=== PATIENT | male | born 1940 | race Caucasian/White ===

== ENCOUNTER 2021-08-09 19:28 | Emergency (ER) | payer MEDICARE ==
[~2021-08-09 19:28] MED LIST: NORCO 5-325 TA1 EACH PO
[2021-08-09 21:03] LABS: HCT 42.3 % (42.0-52.0); MCH 32.3 pg (25.0-31.0); MCHC 33.1 g/dL (32.0-36.0); MCV 97.7 fL (78.0-100.0); MPV 10.2 fL (6.0-9.5); RBC 4.33 M/uL (4.70-6.00); RDW 12.8 % (11.5-14.0)
[2021-08-09 21:13] LABS: INR 0.96 (0.9-1.2); PROTHROMBIN TIME 12.2 SECONDS (11.8-13.4)
[2021-08-09 21:18] LABS: BUN/CREAT RATIO (CALC) 16.8 RATIO; CREATININE 1.01 mg/dL (0.67-1.17)
[2021-08-09] MEDS ORDERED: CLEOCIN300 MG PO (23:01)
== END 2021-08-10 00:06 | disposition home or self-care (01) ==
LOC: FER 19:28
PROVIDERS: Emergency Medicine
DX: R04.0 Epistaxis (principal); I10 Essential (primary) hypertension; I25.10 Atherosclerotic heart disease of native coronary artery without angina pectoris; Z88.0 Allergy status to penicillin; Z79.82 Long term (current) use of aspirin; Z79.02 Long term (current) use of antithrombotics/antiplatelets
CPT/HCPCS: 36415; 80048; 85610; 96374; J2405; J7040